=== PATIENT | female | born 1935 ===

== ENCOUNTER 2017-11-05 13:56 | Emergency (ER) | payer OTHER, MEDICARE, MEDICAID ==
[2017-11-05 14:03] VITALS: BMI 30.9
[2017-11-05 15:27] LABS: BASO # 0.1 K/uL (0.0-0.2); BASO % 0.9 % (0.0-2.0); EOS # 0.3 K/uL (0.0-0.7); EOS % 3.4 % (0.0-4.0); HEMOGLOBIN 12.3 g/dL (11.0-16.0); LYMPH # 2.6 K/uL (1.0-4.3); LYMPH % 29.6 % (20.0-40.0); MEAN CELL VOLUME 84.9 fL (81.0-99.0); MEAN CORPUSCULAR HEMOGLOBIN 28.6 pg (27.0-31.0); MEAN CORPUSCULAR HGB CONC 33.6 g/dL (33.0-37.0); MEAN PLATELET VOLUME 8.6 fL (7.2-11.7); MONO # 1.1 K/uL (0.0-0.8); MONO % 12.2 % (0.0-10.0); NEUT # 4.8 K/uL (1.8-7.0); NEUT % 53.9 % (50.0-75.0); NRBC % 0.3 % (0.0-2.0); RBC 4.32 Mil/uL (3.80-5.20)
[2017-11-05 15:43] LABS: ALBUMIN 4.4 g/dL (3.5-5.0); BLOOD UREA NITROGEN 14 mg/dL (7-17); CALCIUM 9.5 mg/dl (8.6-10.4); GFR AFRICAN-AMERICAN > 60; GFR NON-AFRICAN AMERICAN 53
[2017-11-05 15:44] LABS: ALB/GLOB RATIO 1.2 (1.0-2.1); ALT/SGPT 16 U/L (9-52); AST/SGOT 31 U/L (14-36)
--- NOTE | 2017-11-05 15:56 | C.PDOC ---
History Of Present Illness 82yo female, on an aspirin and Plavix regimen, comes to ER with complaints of a mild cough, blood streaked sputum and a sore throat. She denies any fever, chills, chest pain, shortness of breath, nausea or vomiting. Patient has no additional medical complaints. Time Seen by Provider: 11/05/17 15:05 Chief Complaint (Nursing): ENT Problem History Per: Patient History/Exam Limitations: no limitations Current Symptoms Are (Timing): Still Present Past Medical History Reviewed: Historical Data, Nursing Documentation, Vital Signs Vital Signs: Last Vital Signs Temp 98.3 F 11/05/17 16:59 Pulse 69 11/05/17 16:59 Resp 16 11/05/17 16:59 BP 151/99 H 11/05/17 16:59 Pulse Ox 95 11/05/17 18:20 - Medical History PMH: Arthritis, Asthma, HTN, Hypercholesterolemia Surgical History: No Surg Hx Family History: States: No Known Family Hx - Social History Hx Alcohol Use: No Hx Substance Use: No - Immunization History Hx Tetanus Toxoid Vaccination: No Hx Influenza Vaccination: Yes Hx Pneumococcal Vaccination: No Review Of Systems Constitutional: Negative for: Fever, Chills ENT: Positive for: Throat Pain Cardiovascular: Negative for: Chest Pain Respiratory: Positive for: Cough, Sputum (blood streaked). Negative for: Shortness of Breath Gastrointestinal: Negative for: Vomiting Physical Exam - Physical Exam Appears: Non-toxic, No Acute Distress Skin: Normal Color, No Pale Head: Normacephalic Eye(s): bilateral: Normal Inspection Oral Mucosa: Moist Throat: Normal, No Erythema Neck: Normal ROM, Supple Chest: Symmetrical Cardiovascular: Rhythm Regular Respiratory: Normal Breath Sounds Gastrointestinal/Abdominal: Soft Extremity: Normal ROM Neurological/Psych: Oriented x3 ED Course And Treatment - Laboratory Results Result Diagrams: 11/05/17 15:22 11/05/17 15:22 O2 Sat by Pulse Oximetry: 95 (RA) Pulse Ox Interpretation: Normal Medical Decision Making Medical Decision Making: Plan: -- Labs -- CXR -- Rapid strep 1806 pt with normal cxr, normal hgb. no coughing in ed. pt now sts she is spitting bloody spit as well. pt show one specimen of bloody spit to cp who stated it looked like saliva streaked with small amt blood. will d/c pt home and plan it to f/u pmd and with ent Disposition Counseled Patient/Family Regarding: Studies Performed, Diagnosis, Need For Followup, Rx Given - Disposition Referrals: Eladio Gordon MD [Staff Provider] - Disposition: HOME/ ROUTINE Disposition Time: 18:20 Condition: GOOD Additional Instructions: Please follow up with your primary care doctor and with Dr Gordon- ear/nose/ throat doctor. Call for an appointment. Return to ER for any worse symtpoms. Instructions: Coughing up Blood Forms: [employer] (I[place]ic), General Discharge Instructions - Clinical Impression Clinical Impression: Blood in sputum - PA / TELEVISION NEWS REPORTER / Resident Statement MD/DO has reviewed & agrees with the documentation as recorded. - Scribe Statement The provider has reviewed the documentation as recorded by the Mari Parker Provider attestation: All medical record entries made by the Mari were at my direction and personally dictated by me. I have reviewed the chart and agree that the record accurately reflects my personal performance of the history, physical exam, medical decision making, and the department course for this patient. I have also personally directed, reviewed, and agree with the discharge instructions and disposition.
[2017-11-05] MEDS: Aluminum Hydroxide/Magnesium Hydroxide Susp (30 mL) PO STA (18:02)
[2017-11-05] MEDS ORDERED: Aluminum Hydroxide/Magnesium Hydroxide Susp (30 mL) ONE (18:03)
[2017-11-05 18:26] VITALS: BP 150/85; PULSE 80; RESP 18; TEMP 98.2
[2017-11-07 05:04] VITALS: O2SAT 95
== END 2017-11-05 18:28 | disposition home or self-care (01) ==
LOC: C.ER 13:56
DX: R04.2 Hemoptysis (principal); E78.00 Pure hypercholesterolemia, unspecified; I10 Essential (primary) hypertension